=== PATIENT | male | born 1955 | race Caucasian/White ===

== ENCOUNTER 2020-05-16 06:44 | Inpatient (IN) ==
--- NOTE | 2020-04-17 11:01 | PAT Medication Instructions ---
Medication Instructions Date of Service April 17, 2020 Home Medications aspirin 81 mg PO QAM levocetirizine 10 mg PO HS lisinopril-hydrochlorothiazide 1 tab PO QAM omega 6-zay-mqi-fish oil [Fish Oil] 1 cap PO BID STOP taking 2 weeks before surgery If surgery is within 2 weeks, stop taking as soon as possible. omega 5-ono-etl-fish oil [Fish Oil] 1 cap PO BID DO NOT take the morning of surgery lisinopril-hydrochlorothiazide 1 tab PO QAM Take morning of surgery With a small sip of water, OTHERWISE NOTHING TO EAT OR DRINK AFTER MIDNIGHT: aspirin 81 mg PO QAM Take evening before surgery levocetirizine 10 mg PO HS Other Notes If you have any questions please call us at [phone] or [phone] or [phone] or [phone]
--- NOTE | 2020-04-17 11:11 | Anesthesiology Consultation ---
Date of Service April 17, 2020 Assessment & Plan (1) Encounter for pre-operative examination: COVID Status: As of 04/17 assessment, patient denies travel to endemic area, known exposure/sick contacts, or symptoms of COVID19. Patient made aware to social distance, wear a mask in public and avoid travel for 14 days prior to surgery. Preoperative COVID19 testing to be completed prior to surgery. Chart Review Chart Review: Acceptable Risk for Surgery (pending surgeon ordered PCP clearance 04/20) and Patient seen in Pre Admission Testing Teaching & Discussion Instructed NPO after midnight before surgery, except medications with 15 cc of water. Medication instructions provided according to the PAT guidelines. History Surgery Operation Date: 03/08/20 09:00 Proposed Procedures p Right Total Knee Arthroplasty - Jasson Gomez MD Operation Date: 05/16/20 08:40 Proposed Procedures p Right Total Knee Arthroplasty - Jasson Gomez MD Height/Weight Height: 6 ft 5 in Weight: 104.9 kg Allergies Allergy/AdvReac Type Severity Reaction Status Date / Time amoxicillin Allergy Intermediate Hives Verified 04/16/20 07:56 Medications Home Medications Medication Instructions Recorded Confirmed Last Taken aspirin 81 mg PO QAM 04/16/20 04/16/20 Unknown levocetirizine 10 mg PO HS 04/16/20 04/16/20 Unknown lisinopril-hydrochlorothiazide 1 tab PO QAM 04/16/20 04/16/20 Unknown omega 1-txo-qbt-fish oil [Fish Oil] 1 cap PO BID 04/16/20 04/16/20 Unknown Past Medical History Medical History Environmental allergies History of depression History of panic attacks Hx of cardiac murmur A CHILD ONLY Hypertension Migraine Osteoarthritis Turf toe CAUSED NUMBNESS IN TOES Exercise / Class Metabolic Activity 1 > 8 Run/Swim/Ski/Tennis Past Family History Family History (Updated 04/16/20 @ 08:06 by Ailyn Peña RN) Father Family history of diabetes mellitus Brother Family history of diabetes mellitus Past Surgical History Surgical History History of arthroscopy RT/LEFT History of colonoscopy History of herniorrhaphy RT/LEFT INGUINAL History of toe surgery LEFT BIG TOE IMPLANT History of tooth extraction Hx of vasectomy Past Anesthesia History No Family Hx of Anesthesia Complications History of PONV History of PONV and Hx of Motion Sickness Social History Smoking Status: Former smoker (very remote minimal hx) tobacco type: cigarettes Do You Dip or Chew Tobacco: No Smoking End Date: AT AGE 23 Hx Alcohol Use: No Hx Substance Use: No substance use type: does not use Review of Systems Pt denies any recent chest pain, shortness of breath, palpitations, cough, fever or URI. Physical Exam Vital Signs BP: 123/77 P: 67bpm SPO2: 94% RA T: R: 16 ENMT Mouth: + chipped teeth; no dental restorations and no loose teeth Thyromental Distance: > or= 3.5 Finger Breadths (3.5) Mallampati Class: I Neck normal visual inspection; neck extension not limited Respiratory normal respiratory effort Auscultation: lungs clear to auscultation bilaterally Cardiovascular Rate/Rhythm: regular rate and regular rhythm Heart Sounds: no murmur Vessels: no carotid bruit Extremities: no edema Testing Laboratory Results 04/17/20 11:26 04/17/20 11:26 PT 11.4 Seconds (9.0-12.0) 04/17/20 11: INR 1.1 (0.9-1.1) 04/17/20 11: APTT 29.1 Seconds (21.0-31.0) 04/17/20 11:26 Hemoglobin A1c 5.8 % (4.5-5.6) H 04/17/20 11:26 Urine Color Yellow 04/17/20 11:26 Urine Appearance Clear (Clear) 04/17/20 11:26 Urine pH 5.5 (4.5-7.5) 04/17/20 11:26 Ur Specific [place] 1.015 (1.000-1.030) 04/17/20 11:26 Urine Protein Negative (Negative) 04/17/20 11:26 Urine Glucose (UA) Negative (Negative) 04/17/20 11: Urine Ketones Negative (Negative) 04/17/20 11:26 Urine Nitrite Negative (Negative) 04/17/20 11:26 Ur Leukocyte Esterase Negative (Negative) 04/17/20 11:26 Urine WBC (Auto) 0 /hpf (0-5) 04/17/20 11:26 Urine RBC (Auto) 0-4 /hpf (0-4) 04/17/20 11:26 U Hyaline Cast (Auto) 0 /lpf (0-5) 04/17/20 11:26 U Epithel Cells (Auto) 0-5 /lpf (0-5) 04/17/20 11:26 Urine Bacteria (Auto) Negative (Negative) 04/17/20 11:26 Blood Type B Positive 04/17/20 11:26 Antibody Screen NEGATIVE 04/17/20 11:26 Electrocardiogram Date: 04/17/20 Findings: + NSR @ (67bpm with 1st degree AV block) Chest X-Ray Date: 04/17/20 Findings: + NAD
--- NOTE | 2020-04-17 12:14 | XRay Report ---
XR chest Pre-admission PA/Lat HISTORY: Preop. COMPARISON: None. FINDINGS: Calcified granuloma seen within the left lower lobe. Otherwise, lungs are clear. No pleural effusions. No pneumothorax. The heart is normal in size. IMPRESSION: No acute process. ACT 112: Negative or not required by law. Electronically signed by: Norm Guevara M.D. 04/17/2020 12:13 PM
[2020-04-17 13:38] LABS: Basophils # (auto) 0.01 K/uL (0-0.2); Basophils % (auto) 0.1 %; Eosinophils # (auto) 0.25 K/uL (0-0.5); Eosinophils % (auto) 3.7 %; Hematocrit (blood only) 46.7 % (42-52); Hemoglobin 15.9 g/dL (14.0-18.0); Immature Granulocytes # (auto) 0.01 K/uL (0.00-0.02); Immature Granulocytes % (auto) 0.1 %; Lymphocytes # (auto) 1.85 K/uL (1.2-3.4); Lymphocytes % (auto) 27.4 %; Mean Corpuscular Hemoglobin 30.7 pg (25-34); Mean Corpuscular Volume 90.2 fL (80-100); Mean Platelet Volume 11.7 fL (7.4-10.4); Monocytes % (auto) 8.9 %; Neutrophils # (auto) 4.02 K/uL (1.4-6.5); Neutrophils % (auto) 59.8 %; Platelet Count 157 K/uL (130-400); RDW Coefficient of Variation 13.1 % (11.5-14.5); RDW Standard Deviation 43.3 fL (36.4-46.3); Red Blood Count 5.18 M/uL (4.7-6.1); White Blood Count 6.74 K/uL (4.8-10.8)
[2020-04-17 13:48] LABS: Appearance Urine Clear (Clear); Bacteria Urine Automated Negative (Negative); Bilirubin Urine Negative (Negative); Blood Urine Trace (Negative); Cast Urine Automated 0 /lpf (0-5); Color Urine Yellow; Epithelial Cell Urine Auto 0-5 /lpf (0-5); Glucose Urine UA Negative (Negative); Ketones Urine Negative (Negative); Leukocyte Esterase Urine Negative (Negative); Nitrite Urine Negative (Negative); Protein Urine Negative (Negative); RBC Urine Automated 0-4 /hpf (0-4); Specific Gravity Urine 1.015 (1.000-1.030); Urobilinogen Urine Negative (Negative); WBC Urine Automated 0 /hpf (0-5); pH Urine 5.5 (4.5-7.5)
[2020-04-17 13:53] LABS: Albumin Level 3.6 gm/dl (3.4-5.0); BUN Creatinine Ratio 17.9 (10-20); Calcium 9.1 mg/dl (8.5-10.1); Creatinine Clr Calc Pharmacy 65.9 ml/min; Est GFR (African American) 61.4; Potassium 4.2 mmol/L (3.5-5.1)
[2020-04-17 13:57] LABS: INR 1.1 (0.9-1.1); Partial Thromboplastin Time 29.1 Seconds (21.0-31.0); Prothrombin Time 11.4 Seconds (9.0-12.0)
[2020-04-17 14:15] LABS: Estimated Average Glucose 120 mg/dl; Hemoglobin A1C 5.8 % (4.5-5.6)
--- NOTE | 2020-04-17 15:58 | Electrocardiogram Report ---
Test Reason : Blood Pressure : / mmHG Vent. Rate : 067 BPM Atrial Rate : 067 BPM P-R Int : 222 ms QRS Dur : 096 ms QT Int : 394 ms P-R-T Axes : 061 071 054 degrees QTc Int : 416 ms Sinus rhythm with 1st degree A-V block Otherwise normal ECG No previous ECGs available Confirmed by Chu Live ([id number]) on 04/17/2020 3:57:53 PM Referred By: Jasson Gomez Confirmed By:Chu Live
--- NOTE | 2020-05-15 17:25 | History and Physical Report ---
DATE OF ADMISSION: 05/16/2020 CHIEF COMPLAINT: Chronic right knee pain. HISTORY OF PRESENT ILLNESS: This is a 65-year-old male patient of Dr. Gomez'adalberto complaining of chronic right knee pain and instability, longstanding, now progressively getting worse. The patient has failed conservative treatment including intraarticular injections, viscosupplementation, anti-inflammatories, home exercise program and the use of a brace. The patient has increased pain with weightbearing activities and his pain does interfere with his activities of daily living. The patient has been diagnosed with end-stage osteoarthritis per clinical and radiographic exams. The patient wished to proceed with a right total knee arthroplasty. PAST MEDICAL HISTORY: Heart murmur, hypertension, peripheral neuropathy, osteoarthritis. SOCIAL HISTORY: Nonsmoker, nondrinker. PAST SURGICAL HISTORY: Hernia x2, multiple knee surgeries, right carpal tunnel. FAMILY HISTORY: Noncontributory. REVIEW OF SYSTEMS: Chronic right knee pain, otherwise denies any shortness of breath, chest pain, nausea, vomiting or other joint complaints. MEDICATIONS: Aspirin 81 mg daily, fish oil 1000 mg daily, clobetasol propionate and lisinopril 20/25 one tablet daily, levocetirizine 5 mg 1 tablet twice daily. ALLERGIES: INCLUDE AMOXICILLIN, WHICH CAUSES HIVES AND RASH. PHYSICAL EXAMINATION: GENERAL: Well-developed, well-nourished 65-year-old male in no acute distress. He is alert and oriented x3 and pleasant. HEENT: Normocephalic, atraumatic. Extraocular motions are intact. Pupils are equal and reactive to light. HEART: Regular rate and rhythm, no murmurs. LUNGS: Clear. ABDOMEN: Soft, nontender, bowel sounds present. EXTREMITIES: Right knee limited range of motion of 0 to 125, valgus deformity. Lateral joint line tenderness, no effusion, 5/5 strength. NEUROLOGICALLY AND NEUROVASCULARLY: He is intact in his right lower extremity. DIAGNOSES: Right knee end-stage osteoarthritis, heart murmur, hypertension, peripheral neuropathy, osteoarthritis. PLAN: The patient was advised of his diagnosis. Indications, risks, benefits, postop course have all been reviewed. The patient wished to proceed with a right total knee arthroplasty. Necessary consent forms, preoperative testing and clearances will be obtained.
[~2020-05-16 06:44] MED LIST: ACETAMINOPHEN 500 MG TAB PO SCH; BUPIVACAINE 0.5 % 5 MG/1 ML PF 10ML VIAL ONE; BUPIVACAINE/EPINEPHRINE 0.25% 1:200,000 30 ML VIAL ONE; CeleBREX 200 MG CAP PO SCH; FAMOTIDINE 20 MG TAB PO SCH; GABAPENTIN 300 MG CAP PO SCH; LR 500ML BOLUS, THEN 15ML/HR IV SCH; METOCLOPRAMIDE HCL 10 MG TABLET PO SCH; ROPIVACAINE 0.5% HCL/PF 150 MG, BUPIVACAINE 0.5% MPF 30 ML, EPINEPHrine 30MG/30ML (OR U... INSTIL SCH; TRANEXAMIC ACID / 0.7% NACL 1,000 MG/100 ML BAG IV SCH; TRANEXAMIC ACID 1,000 MG **IV Intra-op IV SCH; VANCOMYCIN HCL 1,500 MG in SODIUM CHLORIDE 0.9% 500 ML IV SCH; dexAMETHasone 4 MG TAB PO SCH
[2020-05-16] MEDS ORDERED: MIDAZOLAM HCL 1 MG/ML 2ML VIAL ONE (07:59)
[2020-05-16] MEDS ORDERED: PROPOFOL IV EMULSION 10 MG/ML 20 ML VIAL IV ONE ×5 (08:00→10:53)
--- NOTE | 2020-05-16 08:49 | History & Physical Bridge Note ---
Date of Service May 16, 2020 History & Physical Bridge Note I have examined the patient, reviewed the History & Physical and in the interval since the performance of the History & Physical I have noted the following changes of clinical significance: no changes noted
[2020-05-16] MEDS ORDERED: ORTHO JOINT ANESTHETIC ONE (08:51)
[2020-05-16] MEDS ORDERED: BACITRACIN INJ 50,000 UNIT VIAL ONE (08:51)
--- NOTE | 2020-05-16 11:38 | Post Operative Brief Note ---
Immediate Post Op Note v1 Date of Surgery May 16, 2020 Pre & Post Diagnosis Operation Date: 03/08/20 09:00 <No data on this case meets the specified criteria> Operation Date: 05/16/20 09:00 Pre-Op Diagnosis: Right Knee Osteoarthritis, posttraumatic, status post knee arthrotomy open knee surgery Post-Op Diagnosis: Right Knee Osteoarthritis, posttraumatic, status post knee arthrotomy open knee surgery, chronic ACL and meniscus tears and calcification synovium versus steroid deposition I identified the patient and participated in the time-out.: Yes Procedure Operation Date: 03/08/20 09:00 <No data on this case meets the specified criteria> Operation Date: 05/16/20 09:00 Actual Procedures p Right Total Knee Arthroplasty(Right), partial synovectomy- Jasson Gomez MD Surgeon Jasson Gomez MD Engineer Byproduct CHRISTIN Kirby Estimated Blood Loss 5 Findings Consistent with Post-Op Diagnosis Specimens Bone cuts Drains Hemovac Drain (10french, dual lumen) Anesthesia Type MAC Spinal Regional Complications none Disposition Accompanied Patient To Recovery: No Disposition: Recovery Room Overlapping Procedure I was immediately available: during the entire case.
--- NOTE | 2020-05-16 11:49 | Operative Report ---
Post Operative Report Pre & Post Diagnosis Operation Date: 03/08/20 09:00 <No data on this case meets the specified criteria> Operation Date: 05/16/20 09:00 Pre-Op Diagnosis: Right Knee posttraumatic osteoarthritis, status post knee arthrotomy open knee surgery Post-Op Diagnosis: Right Knee posttraumatic osteoarthritis, status post knee arthrotomy open knee surgery, calcified synovium possible steroid deposition, chronic ACL tear and medial and lateral meniscus tears I identified the patient and participated in the time-out.: Yes Procedure Operation Date: 03/08/20 09:00 <No data on this case meets the specified criteria> Operation Date: 05/16/20 09:00 Actual Procedures p Right Total Knee Arthroplasty(Right), partial synovectomy- Jasson Gomez MD Surgeon Jasson Gomez MD Fire Prevention Inspector CHRISTIN Kirby Estimated Blood Loss 5 Findings Consistent with Post-Op Diagnosis Specimens Bone cuts Drains 2 Hemovac Anesthesia Type MAC Spinal Regional Complications none Disposition Accompanied Patient To Recovery: No Disposition: Recovery Room Indications 65-year-old male had open knee arthrotomy years ago. Had some type of meniscectomy procedure. Developed osteoarthritis of the years now with severe osteoarthritis tricompartmental disease mainly lateral compartment with [id number] and some bone loss in the lateral compartment. Patient also has chronic flexion contracture of the knee. Description of Procedure The patient was taken to the operating room and anesthetized under spinal MAC regional. Patient was placed supine on the the operating table. A pneumatic tourniquet was placed about the right upper thigh. The knee exam demonstrated valgus knee positive Elodia exam .range of motion 20 to 130 degrees. There was an old medial arthrotomy scar. The involved leg was elevated exsanguinated with Esmarch bandage and the pneumatic tourniquet was raised to 300 millimeters mercury. A curvilinear incision was made across the anterior knee utilizing the old curved medial arthrotomy as the midportion of the incision and extending down to the medial tibial tubercle and up to the mid quadriceps tendon. Skin flaps were elevated. An incision was made into the medial retinaculum and extended up into the mid third of the quadriceps tendon and extended down to the tibial tubercle. Intra-articular findings demonstrated chronic ACL tear tricompartmental osteophytes [id number] medial and lateral compartments with large patellofemoral osteophytes. Prior medial meniscectomy, chronic lateral meniscus tear, diffuse white calcifications and synovium throughout the knee possible steroid deposition or calcific deposits such as calcium pyrophosphate disease. The knee was exposed by excising the posterior cruciate ligament and meniscal remnants. The infrapatellar fat pad was resected. The fat pad over the anterior femur at the upper aspect of the articular surface was resected for placement of the component in that area. A subperiosteal peel lateral release was performed around the patella. Multiple areas of the synovium were dressed with partial synovectomy removing the calcifications within the synovium and removing several loose bodies. The [employer] journey 2.0 total knee arthroplasty system was utilized for the procedure. The custom femoral cutting guide was pinned in position. The distal femoral cut was made. The size 8, 5 in 1 cutting block was placed. The anterior posterior and chamfer cuts were made. The knee was extended and a free hand cut technique was performed to the patella. The patella with was measured and the width was reproduced using a 41 patella component. 3 drill holes are made for the patella component pegs. The tibia was then subluxed. The custom tibial cutting block was pinned in position and the proximal tibial cut was made with the oscillating saw. The size 8 tibial trial was externally rotated in line with the tibial tubercle and pinned in position. The punch for the stem was used. The femoral trial was inserted and centered the notch cutting devices were used and the collet was placed. Tibial trials were used for the insert. The size 12 trial gave balanced ligaments through full range of motion tested. Patient still had about a 5 degree flexion contracture but had flexion to 140 degrees. No instability. Patella tracking was assessed with range of motion. The patella tracked centrally. The trials were removed. The Orthomix anesthetic cocktail was injected per protocol. The cut bone surfaces and soft tissue were copiously irrigated with antibiotic solution with bacitracin. The final components were cemented with Simplex cement. The final components were [employer] journey 2.0 size 8 femur right, 8 tibial baseplate, 12 posterior stabilized polyethylene insert, 41 symmetrical patella. While the cement cured the Betadine soak was used per protocol. When the cement cured the knee was copiously irrigated with pulsatile lavage antibiotic solution with bacitracin. 2 drains were brought out laterally connected to Hemovac. The quadriceps tendon and medial retinaculum were closed with interrupted [id number] #1 Vicryl sutures. The knee was taken through full range of motion and repair was secure. The subcutaneous ti ssues were closed with 2-0 Vicryl sutures. The skin was closed with merlyn. A sterile dressing was applied. The tourniquet was let down and the patient had good capillary refill to the extremity. The patient tolerated the procedure well. My physician psychologist research assistant CHRISTIN Kirby assisted in the procedure including prepping draping leg positioning soft tissue retraction instrument management and assisted in the closure ,dressings application and will participate in postoperative care the patient. I attest to the content of the Intraoperative Record and any orders documented therein. Any exceptions are noted below.
--- NOTE | 2020-05-16 11:59 | XRay Report ---
RIGHT KNEE 2 VIEWS History: Right total knee arthroplasty. Degenerative arthritis. Postop. FINDINGS: The patient is status post a right total knee arthroplasty. The hardware is intact. Questio nable lucency within the fibular head on the lateral view only. Skin merlyn and surgical drains are in place. IMPRESSION: Right total knee arthroplasty. Questionable linear lucency within the fibular head favors overlying s oft tissue artifact. Recommend correlation for point tenderness to exclude the possibility of a nondi splaced fracture. ACT 112: Negative or not required by law. Electronically signed by: Norm Guevara M.D. 05/16/2020 11:57 AM
--- NOTE | 2020-05-16 12:39 | Anesthesiology Progress Note ---
Date of Service May 16, 2020 Anesthesia Post Procedure Vital Signs Vital Signs: Temp Pulse Pulse Resp BP BP Pulse Ox 05/16/20 12:30 68 15 111/70 93 05/16/20 12:20 66 14 114/72 94 05/16/20 12:10 67 12 111/67 93 05/16/20 12:00 70 19 120/72 92 05/16/20 11:50 70 17 118/70 92 05/16/20 11:40 65 21 108/67 92 05/16/20 11:31 36.1 C L 67 22 113/57 L 96 05/16/20 08:12 36.7 C 68 20 126/80 97 05/16/20 07:14 36.6 C 76 20 170/101 H 96 Transfer of Care Handoff Completed per policy Notes Mental Status: alert / awake / arousable and participated in evaluation Patient Amnestic to Procedure: Yes Nausea / Vomiting: adequately controlled Pain: adequately controlled Airway Patency, RR, SpO2: stable & adequate BP & HR: stable & adequate Hydration State: stable & adequate Anesthetic Complications: no major complications apparent and Pt Satisfied with anesthetic care
[2020-05-16] MEDS ORDERED: bisacodyL 10 MG SUPP PR PRN (13:10)
[2020-05-16] MEDS ORDERED: HYDROmorphone INJ 0.5 MG/0.5 ML SYR IV PRN (13:10)
[2020-05-16] MEDS ORDERED: MAGNESIUM HYDROXIDE SUSP 30 ML UDC PO PRN (13:10)
[2020-05-16] MEDS ORDERED: VANCOMYCIN CONSULT ACTIVE PRN (13:10)
[2020-05-16] MEDS ORDERED: ONDANSETRON INJ 2 MG/ML 2 ML VIAL IV PRN (13:10)
[2020-05-16] MEDS ORDERED: NALOXONE HCL 0.4 MG/1 ML VIAL/CARP IV PRN (13:10)
[2020-05-16] MEDS: ACETAMINOPHEN 500 MG TAB PO SCH ×2 (14:23→22:02)
[2020-05-16] MEDS: SODIUM CHLORIDE 0.9% 1000ML 1,000 ML IV SCH (14:23)
[2020-05-16] MEDS ORDERED: VANCOMYCIN HCL 1,500 MG in SODIUM CHLORIDE 0.9% 500 ML IV SCH (19:00)
[2020-05-16] MEDS: DOCUSATE SODIUM 100 MG CAP PO SCH (20:31)
[2020-05-16] MEDS: ASPIRIN 81 MG ECTAB PO SCH (20:31)
[2020-05-16] MEDS: SENNA 8.6 MG TAB PO SCH (20:31)
[2020-05-16] MEDS: CeleBREX 200 MG CAP PO SCH (20:31)
[2020-05-17] MEDS: SODIUM CHLORIDE 0.9% 1000ML 1,000 ML IV SCH (02:42)
[2020-05-17] MEDS: ACETAMINOPHEN 500 MG TAB PO SCH ×3 (05:12→21:00)
[2020-05-17 06:35] LABS: Hematocrit (blood only) 37.8 % (42-52); Mean Corpuscular Hemoglobin 30.4 pg (25-34); Mean Corpuscular Hgb Conc 34.4 g/dL (32-36); Mean Corpuscular Volume 88.5 fL (80-100); Mean Platelet Volume 11.4 fL (7.4-10.4); Platelet Count 132 K/uL (130-400); RDW Coefficient of Variation 12.9 % (11.5-14.5); RDW Standard Deviation 41.6 fL (36.4-46.3); Red Blood Count 4.27 M/uL (4.7-6.1); White Blood Count 14.98 K/uL (4.8-10.8)
[2020-05-17 07:01] LABS: BUN Creatinine Ratio 21.7 (10-20); Calcium 7.9 mg/dl (8.5-10.1); Est GFR (African American) 53.7; Est GFR (Non-African American) 46.4; Potassium 4.1 mmol/L (3.5-5.1)
[2020-05-17] MEDS ORDERED: LACTATED RINGER'S 1,000 ML IV SCH (08:15)
[2020-05-17] MEDS: ASPIRIN 81 MG ECTAB PO SCH ×2 (08:29→20:58)
[2020-05-17] MEDS: CeleBREX 200 MG CAP PO SCH (08:29)
[2020-05-17] MEDS: DOCUSATE SODIUM 100 MG CAP PO SCH ×2 (08:29→20:58)
[2020-05-17] MEDS: MULTIVITAMIN TAB PO SCH (08:29)
[2020-05-17] MEDS ORDERED: LISINOPRIL/HCTZ 20/25MG 1 TAB PO SCH (09:00)
[2020-05-17] MEDS: OXYCODONE HCL IR 5 MG TAB (IMMEDIATE RELEASE) PO PRN ×3 (09:00→23:53)
--- NOTE | 2020-05-17 09:32 | Hospitalist Progress Note ---
Date of Service May 17, 2020 Assessment & Plan (1) Encounter for pre-operative examination: Patient is a 65 year old male with hypertension who presented for a total right knee arthroplasty. Recovering well. 1. Total right knee arthroplasty: pain well controlled, tolerating PT, eager to go home -c/w PT -c/w acetaminophen 1000mg q8hr -c/w hydromorphone 0.5mg IV q4h prn -c/w oxycodone 5-10mg q4h prn 2. Hypertension: stable -c/w lisinopril/hctz 20/25mg 1tab po qd Dispo: inpatient s/p R knee arthroplasty FENGI: LR 80mL/hr DVT ppx: baby aspirin BID Code: full code Admission and Anticipated Discharge Date Admission Date: May 16, 2020 Supervising Physician Co-Signing Physician Notes I personally examined the patient and verified all davila points of history and exam, discussed case, and agree with decision making with Dr Velazquez feeling ok overall pain fairly well controlled vitals noted nad heent nc at mmm breathing unlabored no accessory muscles good effort skin no rashes no pallor or icterus R knee wrapped HTN - BP good. uncertain baseline Cr but w sl bump (in context of expected acute blood loss from knee surgery) will hold BP meds until tomorrow after BMP otherwise as above Subjective Patient seen at bedside this morning. He has no complaints and feels "great". He feels some pain in his left-knee but attributes this to his operation and says it is not concerning. Patient voiced his appreciation in the medical care he has received thus far. Review of Systems Constitutional: no fever, no chills, no sweats and no fatigue Respiratory: no cough, no chest congestion, no dyspnea on exertion and no wheezing Cardiovascular: no chest pain, no palpitations, no syncope and no calf pain Gastrointestinal: no abdominal pain, no early satiety, no nausea and no vomiting Physical Exam Constitutional: well developed, well nourished and + well hydrated; not ill appearing Respiratory: normal respiratory effort Auscultation: lungs clear to auscultation bilaterally; no crackles and no rales Cardiovascular: RRR, no murmur, no edema Gastrointestinal (Abdomen): Inspection/Auscultation: abdomen normal to inspection and normal bowel sounds; abdomen not distended Percussion/Palpation: abdomen soft; abdomen nontender and abdomen not rigid Results & Data Results & Data ([facility]) Vital Signs (Past 12 Hours) Vital Signs Temp Pulse Resp BP Pulse Ox 05/17/20 07:39 36.5 C 64 16 123/72 95 05/17/20 03:51 36.5 C 59 L 16 126/71 94 05/16/20 23:36 36.6 C 64 16 113/67 92
--- NOTE | 2020-05-17 09:49 | Orthopedic Progress Note ---
Date of Service May 17, 2020 Assessment & Plan (1) Arthritis of right knee: POD #1, Right TKA PT/ OT DVT proph- ASA D/C planning- Home w OPPT As per medicine. Admission and Anticipated Discharge Date Admission Date: May 16, 2020 Subjective POD #1, Feeling Well. Denies SOB, CP, N/V, dizziness. Pain controlled well. Wishes OPPT onDischarge. Physical Exam Physical Exam: Right knee dressings c/d/i, no drainage. Toes/ ankle mobile. No calf tenderness. Sitting at bedside comfortably. A&Ox3. Results & Data ([facility]) Vital Signs (Past 12 Hours) Vital Signs Temp Pulse Resp BP Pulse Ox 05/17/20 07:39 36.5 C 64 16 123/72 95 05/17/20 03:51 36.5 C 59 L 16 126/71 94 05/16/20 23:36 36.6 C 64 16 113/67 92
--- NOTE | 2020-05-17 18:59 | Billing Data ---
Date of Service May 17, 2020 Coding Level of Care Code 87718 Subseq Hosp Care Lvl 2
[2020-05-17] MEDS: SENNA 8.6 MG TAB PO SCH (20:58)
[2020-05-18 05:25] LABS: Hematocrit (blood only) 35.1 % (42-52); Hemoglobin 11.8 g/dL (14.0-18.0); Mean Corpuscular Hemoglobin 30.4 pg (25-34); Mean Corpuscular Hgb Conc 33.6 g/dL (32-36); Mean Corpuscular Volume 90.5 fL (80-100); Mean Platelet Volume 11.2 fL (7.4-10.4); Platelet Count 125 K/uL (130-400); RDW Coefficient of Variation 13.3 % (11.5-14.5); RDW Standard Deviation 43.7 fL (36.4-46.3); Red Blood Count 3.88 M/uL (4.7-6.1); White Blood Count 9.75 K/uL (4.8-10.8)
[2020-05-18 05:50] LABS: BUN Creatinine Ratio 20.1 (10-20); Creatinine Clr Calc Pharmacy 58.7 ml/min; Est GFR (African American) 53.3; Potassium 4.2 mmol/L (3.5-5.1)
[2020-05-18] MEDS: ACETAMINOPHEN 500 MG TAB PO SCH (06:21)
--- NOTE | 2020-05-18 07:21 | Orthopedic Progress Note ---
Date of Service May 18, 2020 Assessment & Plan (1) Arthritis of right knee: POD #2, Right TKA PT/ OT DVT proph- ASA D/C planning- Home w OPPT today As per medicine. Admission and Anticipated Discharge Date Admission Date: May 16, 2020 Subjective POD #2, Feeling Well. Denies SOB, CP, N/V, dizziness. Pain controlled well. Wishes OPPT Labs stable Physical Exam Physical Exam: Right knee incision c/d/i, merlyn in tact, skin edges approx well. Toes/ ankle mobile. No calf tenderness. A&Ox3. Results & Data ([facility]) Vital Signs (Past 12 Hours) Vital Signs Temp Pulse Resp BP Pulse Ox 05/18/20 06:33 36.5 C 63 16 136/83 96 05/17/20 23:28 36.8 C 57 L 16 117/70 94
[2020-05-18] MEDS: DOCUSATE SODIUM 100 MG CAP PO SCH (08:19)
[2020-05-18] MEDS: MULTIVITAMIN TAB PO SCH (08:20)
[2020-05-18] MEDS: ASPIRIN 81 MG ECTAB PO SCH (08:20)
--- NOTE | 2020-05-18 09:38 | Hospitalist Progress Note ---
Date of Service May 18, 2020 Assessment & Plan (1) Encounter for pre-operative examination: Patient is a 65 year old male with hypertension who presented for a total right knee arthroplasty. Recovering well. 1. Total right knee arthroplasty: pain well controlled, tolerating PT, eager to go home -c/w PT -c/w acetaminophen 1000mg q8hr -c/w hydromorphone 0.5mg IV q4h prn -c/w oxycodone 5-10mg q4h prn 2. Hypertension: stable -c/w lisinopril/hctz 20/25mg 1tab po qd Dispo: inpatient s/p R knee arthroplasty FENGI: LR 80mL/hr DVT ppx: baby aspirin BID Code: full code Admission and Anticipated Discharge Date Admission Date: May 16, 2020 Supervising Physician Co-Signing Physician Notes case d/w Dr Weldon. went to see pt after discussion but had already been discharged by primary service. appears stable to have been discharged, would simply have repeat BMP as outpt next week. Subjective Patient seen at bedside this morning while he was being seen by PT. Patient reports pain, especially with extension, of his right knee but feels "great" otherwise. He again expressed appreciation at the great care he's received. Patient denies chest pain, shortness of breath, lightheadedness, dizziness, fever, chills, abdominal pain, or new pain/swelling. Review of Systems Constitutional: no fever, no chills, no sweats, no body aches and no fatigue Respiratory: no cough, no chest congestion, no dyspnea and no wheezing Cardiovascular: no chest pain, no palpitations, no syncope and no edema Gastrointestinal: no abdominal pain, no bloating, no nausea and no vomiting Physical Exam Constitutional: well developed, well nourished and + well hydrated; not ill appearing Respiratory: normal respiratory effort Auscultation: lungs clear to auscultation bilaterally; no crackles and no rales Cardiovascular: RRR, no murmur, no edema Gastrointestinal (Abdomen): Inspection/Auscultation: abdomen normal to inspection and normal bowel sounds; abdomen not distended Percussion/Palpation: abdomen soft; abdomen nontender and abdomen not rigid Results & Data Results & Data ([facility]) Vital Signs (Past 12 Hours) Vital Signs Temp Pulse Resp BP Pulse Ox 05/18/20 06:33 36.5 C 63 16 136/83 96 05/17/20 23:28 36.8 C 57 L 16 117/70 94
[2020-05-18] MEDS ORDERED: CETIRIZINE HCL 10 MG TABLET PO SCH (21:00)
--- NOTE | 2020-06-01 11:50 | Discharge Summary (DS) ---
HISTORY OF PRESENT ILLNESS: This is a 65-year-old male patient of Dr. Gomez'adalberto complaining of chronic right knee pain, longstanding, progressively getting worse. The patient failed conservative treatment and elected to proceed with a right total knee arthroplasty. PAST MEDICAL HISTORY: Heart murmur, hypertension, peripheral neuropathy, and osteoarthritis. POSTOPERATIVE COURSE: The patient underwent a right total knee arthroplasty on 05/16/2020. He was followed closely with medical consultation, DVT prophylaxis in the form of aspirin, physical therapy and pain control. The patient did very well postoperatively and was discharged home on postoperative day #2. PHYSICAL EXAMINATION: On discharge, right knee incision was clean, dry and intact. [place] are intact. Skin edges were approximated well. There was no redness or drainage. He had no calf tenderness. Negative Homans sign. Toes and ankle were mobile. Neurologically and neurovascularly, he is intact in his right lower extremity. DIAGNOSES: Right knee total knee arthroplasty, heart murmur, hypertension, peripheral neuropathy, osteoarthritis. PLAN: The patient was discharged home with outpatient physical therapy. He will continue his preadmission medications with the addition of aspirin for DVT prophylaxis and pain medication as needed. The patient will follow up as scheduled as an outpatient.
== END 2020-05-18 11:06 | disposition home or self-care (01) | DRG 470 ==
LOC: ASU 06:44 → 3E 11:33

== ENCOUNTER 2023-10-07 05:14 | Observation (INO) ==
--- NOTE | 2023-09-01 12:56 | PAT Medication Instructions ---
Medication Instructions Date of Service September 01, 2023 Home Medications Medication Instructions Recorded azelastine 205.5 mcg (0.15 %) 1 spray intranasal BID #30 mL 01/20/22 nasal spray celecoxib 200 mg capsule (Celebrex) 200 mg PO BID #60 caps 08/18/23 azelastine 205.5 mcg (0.15 %) nasal spray 1 spray intranasal BID celecoxib 200 mg capsule (Celebrex) 200 mg PO BID aspirin 81 mg capsule 81 mg PO QAM fexofenadine 180 mg tablet 180 mg PO QAM fluticasone propionate 50 mcg/actuation nasal spray,suspension 2 spray intranasal DAILY PRN Nasal Congestion hydrochlorothiazide 12.5 mg tablet 12.5 mg PO QAM lisinopril 10 mg tablet 10 mg PO QAM omega 2-zzu-ygd-fish oil 1,000 mg (120 mg-180 mg) capsule (Fish Oil) 1 cap PO BID tamsulosin 0.4 mg capsule (Flomax) 0.4 mg PO QAM turmeric 1 cap PO QAM ASK your surgeon for instructions celecoxib 200 mg capsule (Celebrex) 200 mg PO BID STOP taking 2 weeks before surgery omega 7-yiq-vff-fish oil 1,000 mg (120 mg-180 mg) capsule (Fish Oil) 1 cap PO BID turmeric 1 cap PO QAM DO NOT take the morning of surgery fexofenadine 180 mg tablet 180 mg PO QAM hydrochlorothiazide 12.5 mg tablet 12.5 mg PO QAM lisinopril 10 mg tablet 10 mg PO QAM Take morning of surgery With a small sip of water, OTHERWISE NOTHING TO EAT OR DRINK AFTER MIDNIGHT: azelastine 205.5 mcg (0.15 %) nasal spray 1 spray intranasal BID aspirin 81 mg capsule 81 mg PO QAM (unless surgeon directed otherwise) fluticasone propionate 50 mcg/actuation nasal spray,suspension 2 spray intranasal DAILY PRN Nasal Congestion (if needed) tamsulosin 0.4 mg capsule (Flomax) 0.4 mg PO QAM Take evening before surgery azelastine 205.5 mcg (0.15 %) nasal spray 1 spray intranasal BID Other Notes If you have any questions please call us at [phone] or [phone] or [phone] or [phone]
--- NOTE | 2023-09-09 10:48 | Anesthesiology Consultation ---
Date of Service September 09, 2023 Assessment & Plan (1) Encounter for pre-operative examination: - workload note sent to [place] PCP, awaiting final clearance given notation provider is awaiting PAT testing. - Outpatient joint pathway: Pending PCP clearance. Chart Review Chart Review: Pending: Refer to Additional Notes / Consult section and Patient seen in Pre Admission Testing Teaching & Discussion Pre-Anesthesia Teaching/Discussion Notes: Instructed NPO after midnight before surgery, except medications with 15 cc of water. Medication instructions provided according to the PAT guidelines. History Surgery Operation Date: 10/07/23 09:00 Proposed Procedures p OP: Left Anterior Total Hip Arthroplasty - Cortes Hooker, Height/Weight Height: 6 ft 4 in Weight: 101 kg Allergies Allergy/AdvReac Type Severity Reaction Status Date / Time amoxicillin Allergy Intermediate Hives Verified 09/04/23 11:04 Medications Home Medications Medication Instructions Recorded Confirmed Last Taken azelastine 205.5 mcg (0.15 %) 1 spray intranasal BID #30 mL 01/20/22 09/04/23 Unknown nasal spray celecoxib 200 mg capsule (Celebrex) 200 mg PO BID #60 caps 08/18/23 09/04/23 Unknown aspirin 81 mg capsule 81 mg PO QAM 09/01/23 09/04/23 Unknown fexofenadine 180 mg tablet 180 mg PO QAM 09/01/23 09/04/23 Unknown fluticasone propionate 50 2 spray intranasal DAILY PRN Nasal 09/01/23 09/04/23 Unknown mcg/actuation nasal Congestion spray,suspension hydrochlorothiazide 12.5 mg tablet 12.5 mg PO QAM 09/01/23 09/04/23 Unknown lisinopril 10 mg tablet 10 mg PO QAM 09/01/23 09/04/23 Unknown omega 2-new-woa-fish oil 1,000 mg 1 cap PO BID 09/01/23 09/04/23 Unknown (120 mg-180 mg) capsule (Fish Oil) tamsulosin 0.4 mg capsule (Flomax) 0.4 mg PO QAM 09/01/23 09/04/23 Unknown turmeric 1 cap PO QAM 09/01/23 09/04/23 Unknown Past Medical History Medical History (Updated 09/09/23 @ 10:57 by Alyse Gonzalez PA-C) BPH (benign prostatic hyperplasia) Left hydrocele monitoring with [facility] History of depression History of panic attacks Turf toe CAUSED NUMBNESS IN TOES Migraine Hx of cardiac murmur A CHILD ONLY - since outgrown. Hypertension controlled, stable per pt Environmental allergies Patient denies h/o stroke, seizures, heart attack, heart failure, DM, blood clots/DVTs or blood transfusions. Exercise / Class Metabolic Activity II 4-5 Yardwork/Stairs/Walk up hill (denies chest discomfort or shortness of breath with 1 FOS) Past Family History Family History Father Family history of diabetes mellitus Brother Family history of diabetes mellitus Grandfather (Maternal) Myocardial infarction Other No family history of adverse response to anesthesia Denies family history of Ovarian cancer Prostate cancer Breast cancer Colorectal cancer Past Surgical History Surgical History S/P knee replacement Right TKA History of carpal tunnel release right History of arthroscopy LEFT knee arthroscopy (cartilage repair) Right knee arthroscopy x2 Hx of vasectomy History of colonoscopy History of herniorrhaphy RT/LEFT INGUINAL History of tooth extraction History of toe surgery LEFT BIG TOE IMPLANT Past Anesthesia History No Family Hx of Anesthesia Complications and Other (awareness throughout much of initial knee arthroscopy in 1970 (unsure if spinal with sedation or general), had post-op depression and panic attacks x 3 weeks-denies SI/HI; notes no subsequent issues with anesthesia) History of PONV History of PONV (denies needing scop patch) and Hx of Motion Sickness Social History Smoking Status: Former smoker tobacco type: cigarettes Do You Dip or Chew Tobacco: No Smoking End Date: at age 23 Hx Alcohol Use: No Hx Substance Use: No substance use type: does not use Review of Systems Snoring, denies witnessed apneas. Patient denies chest pain, shortness of breath, dyspnea on exertion, reflux, fever, chills, cough, wheezing, or palpitations. Physical Exam Vital Signs Vitals BP 127/81 P 63 TEMP 97.5 SP02 95% on RA RESP 18 Physical Patient resting comfortably in chair in no acute distress, alert and oriented, responding appropriately throughout visit Full cervical extension range of motion without pain TMD 3.5 finger breadths Mallampati Score 2 Dentition: intact, denies chipped or loose teeth, caps/crowns, implants or bridges Lungs: normal respiratory effort. Good air movement, clear throughout to auscultation, no adventitious breath sounds Cardiac: regular rate and rhythm, no murmurs noted Carotid arteries: negative bruit bilat Lab Results Anesthesia Preop Results Results Anesthesia Widget: WBC 6.02 K/ul (4.8-10.8) 09/09/23 Hgb 15.0 g/dl (14.0-18.0) 09/09/23 Hct 44.2 % (42.0-52.0) 09/09/23 Plt 148 K/uL (130-400) 09/09/23 Na 139 mmol/L (136-145) 09/09/23 K 4.0 mmol/L (3.5-5.1) 09/09/23 Cl 104 mmol/L (98-107) 09/09/23 CO2 28 mmol/L (21-32) 09/09/23 BUN 22 mg/dl (6-23) 09/09/23 Creat 1.23 mg/dl (0.6-1.4) 09/09/23 Glucose Level 97 mg/dl (70-99(Fasting)) 09/09/23 PT 12.2 Seconds (9.0-12.0) H 09/09/23 PTT 27.9 Seconds (21.0-31.0) 09/09/23 INR 1.1 (0.9-1.1) 09/09/23 Blood Type B Positive 09/09/23 Antibody Screen NEGATIVE 09/09/23 Testing Electrocardiogram Date: 09/09/23 Sinus rhythm with 1st degree AV block, rate 62 bpm Chest X-Ray Date: 09/09/23 No acute process
--- NOTE | 2023-10-01 07:05 | History & Physical Report ---
Date of Service October 01, 2023 Assessment & Plan (1) Osteoarthritis of left hip: We will proceed with a left anterior total of arthroplasty. Postoperatively he will be started on aspirin for DVT prophylaxis and kept overnight in the hospital for postop medical management. He plans to use energy physical therapy upon discharge. History of Present Illness Chief Complaint: Osteoarthritis of the left hip. Primary Care Provider: Xavi RaiDO Dominguez is a pleasant 68-year-old male remains very active. 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 He has been dealing with significant left hip and groin pain. It has been getting worse over the years. He has had x-rays from previous physicians who have diagnosed him with arthritis of his left hip. He has failed conservative treatment from those physicians. He presented to my office for an evaluation. After extensive conversation, he has elected proceed with a left anterior total of arthroplasty. Allergies Allergy/AdvReac Type Severity Reaction Status Date / Time amoxicillin Allergy Intermediate Hives Verified 09/22/23 15:14 Home Medications Medication Instructions Recorded Confirmed Type azelastine 205.5 mcg (0.15 %) 1 spray intranasal BID #30 mL 01/20/22 09/22/23 Rx nasal spray celecoxib 200 mg capsule (Celebrex) 200 mg PO BID #60 caps 08/18/23 09/22/23 Rx aspirin 81 mg capsule 81 mg PO QAM 09/01/23 09/22/23 History fexofenadine 180 mg tablet 180 mg PO QAM 09/01/23 09/22/23 History fluticasone propionate 50 2 spray intranasal DAILY PRN Nasal 09/01/23 09/22/23 History mcg/actuation nasal Congestion spray,suspension hydrochlorothiazide 12.5 mg tablet 12.5 mg PO QAM 09/01/23 09/22/23 History lisinopril 10 mg tablet 10 mg PO QAM 09/01/23 09/22/23 History omega 5-poy-oxq-fish oil 1,000 mg 1 cap PO BID 09/01/23 09/22/23 History (120 mg-180 mg) capsule (Fish Oil) tamsulosin 0.4 mg capsule (Flomax) 0.4 mg PO QAM 09/01/23 09/22/23 History turmeric 1 cap PO QAM 09/01/23 09/22/23 History Past Med/Surg History Medical History BPH (benign prostatic hyperplasia) Left hydrocele monitoring with [facility] History of depression History of panic attacks Turf toe CAUSED NUMBNESS IN TOES Migraine Hx of cardiac murmur A CHILD ONLY - since outgrown. Hypertension controlled, stable per pt Environmental allergies Surgical History S/P knee replacement Right TKA History of carpal tunnel release right History of arthroscopy LEFT knee arthroscopy (cartilage repair) Right knee arthroscopy x2 Hx of vasectomy History of colonoscopy History of herniorrhaphy RT/LEFT INGUINAL History of tooth extraction History of toe surgery LEFT BIG TOE IMPLANT Family History Father Family history of diabetes mellitus Brother Family history of diabetes mellitus Grandfather (Maternal) Myocardial infarction Other No family history of adverse response to anesthesia Denies family history of Ovarian cancer Prostate cancer Breast cancer Colorectal cancer Social History Smoking Status: Former smoker Tobacco Type: Cigarettes Smoking End Date: at age 23; Second Hand Exposure: Yes (PAST EXPOSURE); Do You Dip or Chew Tobacco: No; Tobacco Cessation Education Requested by Patient: No Hx Alcohol Use: No Hx Substance Use: No Preferred Language: Latvian Communication Ability: Effective Visual Impairment: Limited Hearing Ability: Normal 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 Beliefs That Will Affect Care: None marital status: Current Living Situation: Spouse current occupational status: retired How many Children do You have: 2 Other Information That Helps Us Care for You: No Feels Safe at Home: Yes Safety Concerns: Feels Safe At This Time Childhood Exposure to Second-Hand Smoke: No Diet: regular caffeine: Yes during the past year weight has: remained stable Dental Care, Regularly: Yes Physical Activity Frequency: 5-6 Times per Week Physical Activity Frequency Comment: Referree basketball, yard work, rides bike once a week Seatbelt Use: never Sunscreen Use: No Do you think of yourself as: straight/heterosexual Gender Identity: Male Assistive Devices: Glasses Review of Systems All systems reviewed & are unremarkable except as noted in HPI & below. Physical Exam On physical examination of the left hip, he has decreased range of motion. He has pain with forced internal and external rotation. Most of his pain is located in his groin.. Constitutional WD/WN, vitals as above Eyes PERRL, conjunctivae normal, anicteric sclerae ENMT external ear and nose normal, oropharynx normal Neck trachea midline, no thyromegaly Respiratory normal respiratory effort Cardiovascular RRR, no murmur, no edema Gastrointestinal (Abdomen) normal bowel sounds, soft, nontender, no hepatosplenomegaly Psychiatric A+Ox3, euthymic affect Results & Data Results & Data Laboratory Results . Diagnostic Findings X-rays of the left hip show advanced osteoarthritis with joint space narrowing, osteophyte formation, and [id number] reticulation. PG Care Time/CCT Total # of Minutes Spent Total Time Spent with Patient: Total time spent is greater than 50% in coordination of care (as documented) at patient's floor/unit and/or counseling patient: Coding Level of Care Code None Diagnoses Osteoarthritis of left hip M16.12
[2023-10-07] MEDS ORDERED: LR 60ML/HR IV SCH (06:00)
[2023-10-07] MEDS ORDERED: ACETAMINOPHEN 500 MG TAB PO SCH (06:00)
[2023-10-07] MEDS ORDERED: TRANEXAMIC ACID 1,000 MG **IV Pre-op IV SCH (06:00)
[2023-10-07] MEDS ORDERED: dexAMETHasone 4 MG TAB PO SCH (06:00)
[2023-10-07] MEDS ORDERED: ORTHO JOINT MIX INFIL SCH (06:00)
[2023-10-07] MEDS ORDERED: LR 500ML BOLUS, THEN 15ML/HR IV SCH (06:00)
[2023-10-07] MEDS ORDERED: FAMOTIDINE 20 MG TAB PO SCH (06:00)
[2023-10-07] MEDS ORDERED: TRANEXAMIC ACID 1,000 MG **IV Intra-op IV SCH (06:00)
[2023-10-07] MEDS ORDERED: GABAPENTIN 300 MG CAP PO SCH (06:00)
[2023-10-07] MEDS ORDERED: MEPIVACAINE HCL 1.5% 30 ML VIAL ONE (06:10)
--- NOTE | 2023-10-07 06:21 | History & Physical Bridge Note ---
Date of Service October 07, 2023 History & Physical Bridge Note I have examined the patient, reviewed the History & Physical and in the interval since the performance of the History & Physical I have noted the following changes of clinical significance: no changes noted
[2023-10-07] MEDS ORDERED: ceFAZolin 2,000 MG/15 ML IV PUSH IV ONE (06:30)
[2023-10-07] MEDS ORDERED: ceFAZolin 2000MG 2,000 MG/15 ML SYR IV SCH (06:30)
[2023-10-07] MEDS ORDERED: BUPIVACAINE 0.5 % 5 MG/1 ML PF 10ML VIAL ONE (06:32)
[2023-10-07] MEDS ORDERED: ORTHO JOINT ANESTHETIC ONE (06:33)
[2023-10-07] MEDS ORDERED: MIDAZOLAM HCL 1 MG/ML 2ML VIAL ONE (06:39)
[2023-10-07] MEDS ORDERED: fentaNYL citrate PF 100 MCG/2 ML VIAL ONE ×2 (06:39→07:22)
[2023-10-07] MEDS ORDERED: ATROPINE SULFATE 0.1 MG/ML 10ML SYR IV PRN (06:49)
[2023-10-07] MEDS ORDERED: ePHEDrine sulfate 50 MG/ML AMP IV PRN (06:49)
[2023-10-07] MEDS ORDERED: fentaNYL citrate PF 100 MCG/2 ML VIAL IV PRN (06:49)
[2023-10-07] MEDS ORDERED: ONDANSETRON INJ 2 MG/ML 2 ML VIAL IV PRN ×2 (06:49→11:05)
[2023-10-07] MEDS ORDERED: ONDANSETRON INJ 2 MG/ML 2 ML VIAL ONE (07:24)
[2023-10-07] MEDS ORDERED: LIDOCAINE 2% 2 ML VIAL/AMP(20MG/ML) INFIL ONE (07:24)
[2023-10-07] MEDS ORDERED: PROPOFOL IV EMULSION 10 MG/ML 20 ML VIAL IV ONE (07:25)
--- NOTE | 2023-10-07 08:32 | Operative Report ---
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 Alberto arrived at the hospital for the above procedure. He was seen in the preoperative holding area and the operative extremity was identified and signed. He was given a spinal anesthetic, a preoperative antibiotic, and TXA. He was then taken back to the operating room and laid on the table in the supine position. He was given basic sedation. The operative leg was secured to a Puristst leg positioner. The hip was then prepped and draped in sterile fashion. A timeout was done and the patient and the operative extremity was properly identified. An anterior approach was used. Dissection was taken down through the fascia and the tensor muscle belly was retracted laterally and the rectus was retracted medially. The circumflex vessels were identified and ligated. The capsule was then incised and tagged for later repair. The femoral neck was then cut and the femoral head was removed. The acetabulum was exposed. Time was spent doing a complete circumferential labral release. Sequential reaming of the acetabulum up to a size 57 reamer was done. Final reamings were done under fluoroscopy to ensure appropriate version. A Biomet 58 mm G7 cup was then impacted into place. A single 25 mm screw was placed. The E1 polyethylene liner was then snapped into place. Surrounding soft tissues were then injected with 100 cc of an orthopedic pain control cocktail. The proximal femur was then exposed. Sequential broaching up to a size 3 broach was done. Off that broach a size 40 head with a 0 neck was trialed. The hip was reduced and fluoroscopic images showed anatomic alignment of the implants in acceptable length. The broach was removed. The final size 3 high offset Avenir Complete stem was then impacted into place. A ceramic 40 mm head with a 0 neck was then impacted onto the stem and the hip was reduced. Final fluoroscopic images showed anatomic alignment of the hip. The capsule was then closed with #1 Vicryl suture. A dilute betadyne lavage was then done for 3 minutes. The joint was then irrigated with normal saline solution. The fascia was closed with #1 PDS suture. Skin was closed with 2-0 Vicryl, merlyn, and a Silverlon dress ing. He was then transferred to a hospital bed and taken to the post anesthesia care unit in stable condition. He tolerated the procedure well. I attest to the content of the Intraoperative Record and any orders documented therein. Any exceptions are noted below.
--- NOTE | 2023-10-07 08:37 | Fluoroscopy Report ---
FL hip LT 1V CLINICAL HISTORY: LEFT ANTERIOR HIP COMPARISON STUDY: Left hip radiograph July 19, 2023. FLUOROSCOPY TIME: 11 seconds. Ka, r: 1.6001 mGy FLUOROSCOPIC IMAGES: 1 FINDINGS: Fluoroscopy was provided during total left hip arthroplasty. Hardware is intact. No fractur es are identified. There is an acetabular screw. No unexpected radiopaque foreign bodies. IMPRESSION: Fluoroscopy provided during total left hip arthroplasty. ACT 112: Negative or not required by law. Electronically signed by: Yobany Shipley M.D. 10/07/2023 8:35 AM
--- OUTSIDE RECORDS SUMMARY | 2023-10-07 09:33 | External Medical Summary | Summary of Care ---
Author Name Unknown Organization [facility] Address [address] [place] [address] Phone [phone] Care Team Providers Care Retail Assistant Manager Name Role Phone Xavi Rai DO Primary Care Provider [phone] Reason for Visit * Reason Comments Pain Left foot pain start ed last night with some redness noted of foot Encounter Details Date Type Department Care Team (Latest Contact Info) Description 09/24/2023 10:20 AM EST [facility] [address] [place] [id number] Alberto Gandara PA-C [address] [place] [phone] Pain in left toe(s)* Allergies Active Allergy Reactions Criticality Noted Date Comments Amoxicillin 01/23/2004 documented as of this encounter (statuses as of 09/24/2023) Medications Medication Sig Dispensed Refills Start Date End Date Status LEVOCETIRIZINE DIHYDROCHLORIDE 5 MG PO TABS 1 tablet daily 0 Active FISH OIL 1000 MG PO CAPS 2 caps daily 0 Active ASPIRIN 81 MG PO TABS 1 tablet daily 0 Active Turmeric 500 MG Capsule Take 1 Capsule by mouth in the morning. 0 Active Lisinopril-hydroCHLORO thiazide 20-25 MG per tablet TAKE 1 TABLET BY MOUTH EVERY DAY FOR BLOOD PRESSURE 1 06/28/2019 Active fluticasone (FLONASE) 50 MCG/ACT nasal spray 0 07/18/2019 Ac tive Fexofenadine HCl 180 MG Oral Tablet (Almita) Take 1 Tablet by mouth in the morning. 0 Active Doxycycline Hyclate 100 MG Oral Capsule Take 1 Capsule by mouth in the morning and 1 Capsule before bedtime. Do all this for 7 days. Until gone.. 14 Capsule 0 09/24/2023 10/01/2023 Active documented as of this encounter (statuses as of 09/24/2023) Active Problems Problem Noted Date Diagnosed Date OSTEOARTHROS NOS-L-LEG 01/23/2004 OSTEOARTHROS NOS-HAND 01/23/2004 documented as of this encounter (statuses as of 09/24/2023) Social History Tobacco Use Types Packs/Day Years Used Date Smoking Tobacco: Former Cigarettes 0.5 1 Q uit: 10/26/1975 Smokeless Tobacco: Never Tobacco Cessation:Counseling Given: Not Answered Alcohol Use Standard Drinks/Week Comments No 0 (1 standard drink = 0.6 oz pur e alcohol) Sex and Gender Information Value Date Recorded Sex Assigned at Not on file Gender Identity Not on file Sexual Orientation Not on file Job Start Date Occupation Industry Not on file Not on file Not on file documented as of this encounter Last Filed Vital Signs Vital Sign Reading Time Taken Comments Blood Pressure 150/70 09/24/2023 9:43 AM EST Pulse 80 09/24/2023 9:43 AM EST Temperature 36.2 C (97.2 F) 09/24/2023 9:43 AM ES T Respiratory Rate 16 09/24/2023 9:43 AM EST Oxygen Saturation 96% 09/24/2023 9:43 AM EST Inhaled Oxygen Concentration - - Weight 102.5 kg (226 lb) 09/24/2023 9:43 AM EST Height 193 cm (6' 4") 09/24/2023 9:43 AM EST Body Mass Index 27.51 09/24/2023 9:43 AM EST documented in this encounter Patient Instructions * Patient Instructions* Alberto Gandara PA-C - 09/24/2023 9:55 AM EST Bruise vs cellulitis 3rd toe Mild cellulitis if any Watch closely- follow up if not resolving Doxy should not affect surgery but let your ortho dr know you are on it for next 7 dys documented in this encounter Progress Notes * Alberto Gandara PA-C - 09/24/2023 9:57 AM EST Images from the original note were not included. History of Present Illness Alberto Vicente is a 68 year old male that presents for Pain (Left foot pain started last night with some redness noted of foot) Redness soreness L 3-4 toe after walking outside a lot- NKI- no fever- having hip surgery in 2 weeks- NKI but feels his shoe rubbed the toe Lower Extremity Pain The pain is present in the left toes. This is a new problem. The current episode started in the past 7 days. There has been no history of extremity trauma. The problem occurs constantly. The problem has been unchanged. The quality of the pain is described as dull. The pain is at a severity of 3/10.The pain is moderate. Pertinent negatives include no fever, inability to bear weight or joint swelling. Physical Exam Vitals: 09/24/23 0943 Temp: 36.2 C (97.2 F) Pulse: 80 Resp: 16 SpO2: 96% BP: 150/70 BMI: 27.52 Physical Exam Vitals and nursing note reviewed. Constitutional: Appearance: Normal appearance. HENT: Head: Normocephalic and atraumatic. Cardiovascular: Rate and Rhythm: Normal rate and regular rhythm. Heart sounds: Normal heart sounds. Musculoskeletal: Comments: Full ROM L toes Skin: Capillary Refill: Capillary refill takes less than 2 seconds. Comments: L 3 toe has bruising, mild erythema/ warmth- no DC or fluctuance Neurological: Mental Status: He is alert. I have reviewed the following results: Assessment and Plan Pain in left toe(s) (Primary) Other orders - Doxycycline Hyclate 100 MG Oral Capsule; Take 1 Capsule by mouth in the morning and 1 Capsule before bedtime. Do all this for 7 days. Until gone.. Follow Up: Return if symptoms worsen or fail to improve. Bruise vs cellulitis 3rd toe Mild cellulitis if any Watch closely- follow up if not resolving Doxy should not affect surgery but let your ortho dr know you are on it for next 7 dys Wrap-Up Follow Up: Return if symptoms worsen or fail to improve. Time: I spent a total of 10-19 minutes (exact time 15 mins) on the date of service in preparation, delivery, and documentation of the care provided to Alberto Vicente excluding any time spent in the performance of separately billed services. documented in this encounter Nursing Notes * Beatriz Ledezma LPN - 09/24/2023 9:47 AM EST Alberto Vicente is a 68 year old male who presents to walk-in clinic today complaining of Chief Complaint Patient presents with Pain Left foot pain started last night with some redness noted of foot Tried: nothing Pt accompanied by: self documented in this encounter Plan of Treatment Health Maintenance Due Date Last Done Comments COVID-19 Vaccine (#1) 1953 Depression Screening 1965 Hepatitis C Screening 1971 DTaP,Tdap,and Td Vaccines (1 - Tdap) 1972 Cologuard 1998 Fecal Occult Blood Test 1998 Sigmoidoscopy 1998 AAA Screening 2018 Influenza Vaccine (FLU shot) (#1) 2023 10/30/2021, 08/23/2020 Lipid Panel 04/11/2026 04/11/2021, 09/25, 06/03/2014 Colonoscopy 04/22/2033 04/22/2023, 03/27, 04/19/2013, Additional history exists Colorectal Cancer Screening 04/22/2033 Zoster Vaccines Completed 07/26/2019, 04/25, 02/12/2016 Pneumococcal Vaccine: 65+ Years Completed 02/07/2021, 07/27/2019 GARDASIL-HPV IMMUNIZATION SERIES Aged Out No longer eligible based on patient's age to complete this topic Hepatitis B Aged Out No longer eligi ble based on patient's age to complete this topic MENINGOCOCCAL (MENACTRA/MENVEO) Aged Out No longer eligible based on patient's age to complete this topic documented as of this encounter Medical Devices Not on filedocumented as of this encounter Visit Diagnoses Diagnosis Pain in left toe(s)- Primary documented in this encounter Care Teams Retail Assistant Manager Relationship Specialty Start Date End Date Xavi Rai DO [address] [facility] [place] [id number] PCP - General Family Medicine 01/20/22 documented as of this encounter
--- NOTE | 2023-10-07 10:30 | Anesthesiology Progress Note ---
Date of Service October 07, 2023 Anesthesia Post Procedure Vital Signs Vital Signs: Temp Pulse Pulse Resp BP Pulse Ox O2 Del Method 10/07/23 10:25 65 18 122/81 95 Nasal Cannula 10/07/23 10:15 97.3 F L 69 18 144/78 H 95 Nasal Cannula 10/07/23 10:05 68 16 119/90 95 Nasal Cannula 10/07/23 09:55 65 15 133/74 95 Nasal Cannula 10/07/23 09:45 64 16 134/78 94 Nasal Cannula 10/07/23 09:35 71 16 140/88 95 Nasal Cannula 10/07/23 09:25 71 16 136/73 94 Nasal Cannula 10/07/23 09:15 66 12 123/68 94 Nasal Cannula 10/07/23 09:05 65 16 117/70 94 Oxymask 10/07/23 08:55 66 20 114/64 94 Oxymask 10/07/23 08:45 98.1 F 71 12 106/61 94 Oxymask 10/07/23 05:40 98.1 F 75 18 152/95 H 96 Room Air O2 Flow Rate 10/07/23 10:25 2 10/07/23 10:15 2 10/07/23 10:05 2 10/07/23 09:55 2 10/07/23 09:45 2 10/07/23 09:35 2 10/07/23 09:25 2 10/07/23 09:15 2 10/07/23 09:05 3 10/07/23 08:55 4 10/07/23 08:45 6 10/07/23 05:40 Pain Intensity Left Hip: Pain Intensity: 2 Transfer of Care Handoff Completed per policy Notes Mental Status: alert / awake / arousable and participated in evaluation Patient Amnestic to Procedure: Yes Nausea / Vomiting: adequately controlled Pain: adequately controlled Airway Patency, RR, SpO2: stable & adequate BP & HR: stable & adequate Hydration State: stable & adequate Neuraxial Anesthesia: was administered and sensory block is resolving Anesthetic Complications: no major complications apparent and Pt Satisfied with anesthetic care
[2023-10-07] MEDS: SODIUM CHLORIDE 0.9% 1,000 ML IV SCH ×2 (11:00→20:54)
[2023-10-07] MEDS ORDERED: traMADol HCL 50 MG TABLET PO PRN (11:05)
[2023-10-07] MEDS ORDERED: METOCLOPRAMIDE HCL INJ 5 MG/ML 2 ML VIAL IV PRN (11:05)
[2023-10-07] MEDS ORDERED: oxyCODONE HCL IR 5 MG TAB (IMMEDIATE RELEASE) PO PRN (11:05)
[2023-10-07] MEDS ORDERED: MAGNESIUM HYDROXIDE SUSP 30 ML UDC PO PRN (11:05)
[2023-10-07] MEDS ORDERED: HYDROmorphone INJ 0.5 MG/0.5 ML SYR IV PRN (11:05)
[2023-10-07] MEDS ORDERED: bisacodyL 10 MG SUPP PR PRN (11:05)
[2023-10-07] MEDS ORDERED: NALOXONE HCL 0.4 MG/1 ML VIAL/CARP IV PRN (11:05)
[2023-10-07] MEDS: KETOROLAC TROMETHAMINE 15 MG/ML VIAL IV SCH ×3 (12:25→22:23)
[2023-10-07] MEDS: lisinopril 10 MG TAB PO SCH (13:28)
[2023-10-07] MEDS: hydroCHLOROthiazide 25 MG TAB PO SCH (13:28)
[2023-10-07] MEDS: TAMSULOSIN HCL 0.4 MG CAP PO SCH (13:29)
[2023-10-07] MEDS: DOCUSATE SODIUM 100 MG CAP PO SCH ×2 (13:33→20:55)
[2023-10-07] MEDS: ASPIRIN 81 MG ECTAB PO SCH ×2 (13:33→20:55)
[2023-10-07] MEDS: MULTIVITAMIN TAB PO SCH (13:33)
[2023-10-07] MEDS: AZELASTINE HCL 0.1% NASAL 200 SPRAYS/27,400 MCG BTL SCH ×2 (13:34→20:54)
[2023-10-07] MEDS: ceFAZolin 2000MG 2,000 MG/15 ML SYR IV SCH ×2 (14:24→20:54)
[2023-10-07] MEDS ORDERED: SENNA 8.6 MG TAB PO SCH (21:00)
[2023-10-08] MEDS: KETOROLAC TROMETHAMINE 15 MG/ML VIAL IV SCH (05:09)
[2023-10-08] MEDS ORDERED: dexAMETHasone 4 MG TAB PO SCH (08:00)
[2023-10-08] MEDS: DOCUSATE SODIUM 100 MG CAP PO SCH (09:09)
[2023-10-08] MEDS: AZELASTINE HCL 0.1% NASAL 200 SPRAYS/27,400 MCG BTL SCH (09:09)
[2023-10-08] MEDS: ASPIRIN 81 MG ECTAB PO SCH (09:09)
[2023-10-08] MEDS: MULTIVITAMIN TAB PO SCH (09:10)
[2023-10-08] MEDS: hydroCHLOROthiazide 25 MG TAB PO SCH (09:10)
[2023-10-08] MEDS: lisinopril 10 MG TAB PO SCH (09:10)
[2023-10-08] MEDS: TAMSULOSIN HCL 0.4 MG CAP PO SCH (09:11)
--- NOTE | 2023-10-08 09:34 | Orthopedic Progress Note ---
Date of Service October 08, 2023 Assessment & Plan (1) Status post left hip replacement: Overall, he is doing quite well today with good pain control to the left hip. He will be working with physical therapy today to work on ambulation and range of motion exercises. He is on aspirin for DVT prophylaxis. He can be discharged home later today. He will follow-up with orthopedics in 2 weeks for postoperative care. Subjective . Alberto was seen and evaluated at bedside resting comfortably in no apparent distress. He notes that his pain is well-controlled to his left hip. He notes he has been up and ambulating to the bathroom. He denies any other concerns at this time. Review of Systems All systems reviewed & are unremarkable except as noted in HPI & below. Physical Exam . On physical examination of the left hip, dressing is in place, clean, dry, and intact. His leg is out in full extension. He has active plantarflexion dorsiflexion to the left ankle. +2 DP and PT pulses. Less than 2-second capillary refill. Normal sensation. Neurovascular intact. Results & Data Results & Data Laboratory Results . Diagnostic Findings . Postoperative x-rays of the left hip show prosthesis to be in anatomical alignment with no signs of fracture complication or loosening. PG Care Time/CCT Total # of Minutes Spent Total Time Spent with Patient: Total time spent is greater than 50% in coordination of care (as documented) at patient's floor/unit and/or counseling patient: Coding Level of Care Code 17987 Post Operative Follow-Up Diagnoses Status post left hip replacement Z96.642
--- NOTE | 2023-10-08 09:36 | Discharge Summary ---
Date of Service October 08, 2023 Admission HPI (Per Admitting) Alberto is a pleasant 68-year-old male remains very active. 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 He has been dealing with significant left hip and groin pain. It has been getting worse over the years. He has had x-rays from previous physicians who have diagnosed him with arthritis of his left hip. He has failed conservative treatment from those physicians. He presented to my office for an evaluation. After extensive conversation, he has elected proceed with a left anterior total of arthroplasty. Admission Exam (Per Admitting) On physical examination of the left hip, he has decreased range of motion. He has pain with forced internal and external rotation. Most of his pain is located in his groin.. Principal Diagnosis Same as "Discharge Diagnosis" noted below under Discharge Instructions. Discharge Exam . On physical examination of the left hip, dressing is in place, clean, dry, and intact. His leg is out in full extension. He has active plantarflexion dorsiflexion to the left ankle. +2 DP and PT pulses. Less than 2-second capillary refill. Normal sensation. Neurovascular intact. Discharge Data Procedures Performed Operation Date: 10/07/23 07:00 Actual Procedures p Left Anterior Total Hip Arthroplasty - Cortes Hooker DO Ordered Studies 10/07/23 07:00 FL hip LT 1V Routine Hospital Course (1) Status post left hip replacement: On October 07, 2023 Alberto arrived at [facility] and underwent a left total hip arthroplasty without complications. He had a spinal anesthetic. Postoperatively, he was started on aspirin for DVT prophylaxis and transferred to the general orthopedic floor in stable condition. His hospital course was uneventful. On postoperative day #1, his vital signs were stable and his pain was well-controlled. He participated well with physical therapy working on ambulation and range of motion exercises. He was then discharged home in stable condition. He is going to follow-up in 2 weeks with orthopedics for postoperative care. PG Care Time/CCT Total # of Minutes Spent Total Time Spent with Patient: Total time spent is greater than 50% in coordination of care (as documented) at patient's floor/unit and/or counseling patient: Discharge Plan Discharge Items Patient Disposition: Home - Home Health Services Reason For Visit: DJD Left Hip Discharge Diagnosis: Same Activity: Per Instructions section Non-emergency contact: Surgeon Call non-emergency contact if: your temperature is above 101.5, your wound has increased redness and your wound has increased drainage Follow-up/Referrals: [facility] [Outside] (as per surgeon's office ) Xavi Rai DO [Primary Care Provider] - Diet: Low Sodium (2gm) Addtl Attending Provider Instructions: Activity and Therapy Recommendations: * If you are using [facility] then therapy will be provided at your home until they feel you have accomplished all of your goals. * If you are using [facility] then Physical Therapy will be provided until they feel you are ready to start Outpatient Physical Therapy. * If you are not using home therapy then Outpatient Physical Therapy should start about 3-5 days from your day of surgery. Therapy will last about 6-10 weeks * You were shown a series of exercises in the hospital. Do these exercises three times each day including the exercises you were shown in physical therapy. * Get up and walk several times each day.~ For the first four weeks, try not to stand or walk for more than one hour at a time. If you do stand or walk for more than one hour, you will not hurt anything, but your leg will likely swell.~~ * As you feel comfortable, you may change from the walker or crutches to a cane and~then to independent walking. Medications: * Narcotic You will likely be sent home from the hospital with a prescription for the narcotic pain medication that worked best throughout your stay. * Cefadroxil -take the antibiotic twice a day for 10 days to help prevent infection. * Aspirin Most patients will be required to take Aspirin 81mg twice a day for 6 weeks after surgery. This is obtained [id number] and a prescription is not necessary. * Other medications may be prescribed for specific circumstances. If you have any questions, please call the office at . * Resume previous home medications unless otherwise instructed TEDs/Elastic Stockings: The white elastic stockings help limit swelling and prevent blood clots from forming in your legs. The more you wear them, the more they work. Wear them for six weeks. Dressing Care: Leave the Silverlon dressing in place for 7 days. After 7 days you may remove the dressing. If the incision is not draining then you may leave the merlyn open to air. If there is a little bit of drainage or if the merlyn are getting stuck on your clothing then cover the incision with a dry dressing. The merlyn will be removed at your 2 week follow-up appointment. Showering: You may shower with the Silverlon dressing in place. Do not let the shower spray hit the dressing directly. Pat the Silverlon dressing dry. If the dressing becomes wet underneath, then simply remove the dressing. Keep the incision dry until you are 7 days out from the day of surgery. After 7 days you may remove the Silverlon dressing and shower with the merlyn exposed. Let soapy water run over the merlyn and pat them dry. Do not scrub or soak the incision. Things To Watch For: * Drainage from the incision site that occurs more than one week after your surgery. * Increased redness at the incision site. * Fever above 102 degrees Fahrenheit. * Unusual chest pain or shortness of breath. * Call [facility] at with any of the above problems Follow-Up Visit: Follow-up with Dr. Hooker's PA (Cortes Gamboa) 2-3 weeks after your day of surgery. He will remove your merlyn and answer any questions. If you have any additional questions or concerns, Dr Hooker is usually in the office at the same time and will be available An appointment was probably scheduled when you signed-up for surgery in the office. If you have any questions call Office Instructions: More detailed instructions as well as Frequently Asked Questions were provided in a folder by our office when you signed-up for surgery. Please review these instructions when you get home. If you have any further questions or concerns, please feel free to call the office at [phone] Pending Studies at Discharge: No Stand-Alone Forms: [facility] [employer], Smoking Cessation Medications and DC Order Prescriptions: New aspirin 81 mg Tablet,Delayed Release (Dr/Ec) 81 mg PO BID 42 Days Qty: 0 0RF tramadol 50 mg Tablet 50 - 100 mg PO Q6 PRN (Reason: pain) Qty: 30 0RF cefadroxil 500 mg capsule 500 mg PO BID 10 Days Qty: 20 0RF Continued azelastine 205.5 mcg (0.15 %) spray,non-aerosol 1 spray intranasal BID Qty: 30 3RF Rx Instructions: administer into each nostril omega 1-rlb-azz-[id number] oil [Fish Oil] 1,000 mg (120 mg-180 mg) Capsule 1 cap PO BID turmeric 1 cap PO QAM fexofenadine 180 mg tablet 180 mg PO QAM tamsulosin [Flomax] 0.4 mg capsule 0.4 mg PO QAM lisinopril 10 mg tablet 10 mg PO QAM fluticasone propionate 50 mcg/actuation spray,suspension 2 spray intranasal DAILY PRN (Reason: Nasal Congestion) Rx Instructions: administer into each nostril hydrochlorothiazide 12.5 mg tablet 12.5 mg PO QAM acetaminophen 500 mg Tablet 500 mg PO Q6H PRN (Reason: Pain) Discontinued celecoxib [Celebrex] 200 mg capsule 200 mg PO BID Qty: 60 2RF aspirin 81 mg Capsule 81 mg PO QAM Admission Data Admit Date/Time: 10/07/23 07:50 Attending Provider: Cortes Hooker Admit Provider: Cortes Hooker Primary Care Provider: Xavi Rai
== END 2023-10-08 11:11 | disposition home health service (06) ==
LOC: 3W 05:14 → ASU 05:14